=== PATIENT | female | born 2000 | race Caucasian/White ===

== ENCOUNTER 2021-01-10 22:46 | Observation (INO) | payer SELFPAY ==
[~2021-01-10] VITALS: Ht 157.5 cm; Wt 64.0 kg
[2021-01-10] MEDS ORDERED: KETOROLAC 30 MG/1 ML ONE (23:37)
[2021-01-10] MEDS ORDERED: ONDANSETRON 2MG/ML, 2ML ONE (23:37)
--- NOTE | 2021-01-10 23:40 | NUR ---
Pt syncoped in waiting room dad knocked on door and was carrying pt into the ER. Pt was taken to T4 and assessed. IV started blood drawn and sent, EKG done, IVF infusing, BG 134. Sinus tach no ectopy RR equal and unlabored. Dr Hung at bedside. MICHEAL
[2021-01-10 23:49] LABS: MEAN CORPUSCULAR HEMOGLOBIN 30.5 pg (27.0-34.8); MEAN CORPUSCULAR HGB CONC 34.6 g/dL (32.4-35.8); MEAN PLATELET VOLUME 8.8 fL (7.4-10.4); PLATELET COUNT 193 x10^3/uL (130-400); RED BLOOD COUNT 4.49 x10^6/uL (3.82-5.3); RED CELL DISTRIBUTION WIDTH 13.5 % (9.6-15.2)
--- NOTE | 2021-01-10 23:55 | NUR ---
PTY MOVED FROM ED TRAUMA 4 TO ROOM 18. REPORT RECEIVED FROM DANNA PAGE.
[2021-01-11] MEDS ORDERED: ONDANSETRON 2MG/ML, 2ML IVPush ONE
[2021-01-11] MEDS ORDERED: SODIUM CHLORIDE 0.9% 1,000ML IVBOLUS ONE
[2021-01-11] MEDS ORDERED: ACETAMINOPHEN 500 MG TABLET PO ONE
[2021-01-11] MEDS ORDERED: KETOROLAC 30 MG/1 ML IVPush ONE
[2021-01-11 00:03] LABS: ALANINE AMINOTRANSFERASE 457 U/L (12-78); ALBUMIN 3.4 g/dL (3.4-5.0); ANION GAP 8 mmol/L (5-15); CALCIUM 8.5 mg/dL (8.5-10.1); CHLORIDE 103 mmol/L (98-107)
[2021-01-11 00:07] LABS: ALKALINE PHOSPHATASE 267 U/L (45-117); BILIRUBIN,TOTAL 4.9 mg/dL (0.2-1.0); TOTAL PROTEIN 7.9 g/dL (6.4-8.2)
[2021-01-11] MEDS ORDERED: ACETAMINOPHEN 500 MG TABLET ONE (00:13)
--- NOTE | 2021-01-11 00:24 | NUR ---
PT TO IMAGING
[2021-01-11 00:25] LABS: BAND#(MANUAL) 0.75 x10^3/uL; BANDS%(MANUAL) 5 % (0-7); LYMPH#(MANUAL) 9.83 x10^3/uL (1-6.1); LYMPHS% (MANUAL) 66 % (22-44); MONOS#(MANUAL) 1.94 x10^3/uL (0.3-2.7); MONOS% (MANUAL) 13 % (2-9); SEG#(MANUAL) 2.38 x10^3/uL (1.8-8); SEGS% (MANUAL) 16 % (42-75)
[2021-01-11 00:26] LABS: <PLATELET ESTIMATE> ADEQUATE; <PLT MORPHOLOGY> NORMAL PLT MORPH; <RBC MORPHOLOGY> NORMAL
[2021-01-11 01:27] LABS: MICROSCOPIC INDICATED
[2021-01-11] MEDS ORDERED: CEFTRIAXONE 1,000 MG in DEXTROSE 5% 50 ML IVPB ONE (02:00)
[2021-01-11 02:28] LABS: BILIRUBIN, DIRECT 3.6 mg/dL (0.1-0.2); BILIRUBIN,INDIRECT 1.3 mg/dL (0.0-2.0); BILIRUBIN,TOTAL 4.9 mg/dL (0.2-1.0)
--- NOTE | 2021-01-11 03:25 | NUR ---
Pt to be admitted to medical, room 359. Report called to
--- NOTE | 2021-01-11 03:34 | NUR ---
Pt prepared for tranport to floor. All belongings with pt and medication given to dad to take home.
[2021-01-11 03:50] VITALS: BP 96/62
[2021-01-11] MEDS ORDERED: CEFTRIAXONE 1,000 MG in DEXTROSE 5% 50 ML IVPB SCH (06:00)
[2021-01-11] MEDS ORDERED: ONDANSETRON 2MG/ML, 2ML IVPush PRN (06:00)
[2021-01-11 07:09] VITALS: BP 98/58
[2021-01-11 13:23] VITALS: BP 102/68
[2021-01-11] MEDS: POTASSIUM CHLORIDE 20 MEQ in LACTATED RINGERS 1,000 ML IV SCH ×2 (13:39→21:46)
[2021-01-11 19:14] VITALS: BP 96/60
[2021-01-11] MEDS ORDERED: ACETAMINOPHEN 325 MG TABLET PO PRN (19:30)
[2021-01-11] MEDS ORDERED: IBUPROFEN 200 MG TABLET PO PRN (20:30)
[2021-01-12 00:34] VITALS: BP 91/62
[2021-01-12 04:22] VITALS: BP 110/74
[2021-01-12 06:14] LABS: MEAN CORPUSCULAR HEMOGLOBIN 30.7 pg (27.0-34.8); MEAN CORPUSCULAR HGB CONC 34.3 g/dL (32.4-35.8); MEAN PLATELET VOLUME 8.8 fL (7.4-10.4); PLATELET COUNT 161 x10^3/uL (130-400); RED BLOOD COUNT 3.99 x10^6/uL (3.82-5.3); RED CELL DISTRIBUTION WIDTH 14.1 % (9.6-15.2)
[2021-01-12 06:20] LABS: ALBUMIN 2.9 g/dL (3.4-5.0); ANION GAP 7 mmol/L (5-15); CALCIUM 8.2 mg/dL (8.5-10.1); CHLORIDE 108 mmol/L (98-107)
[2021-01-12 06:24] LABS: ALANINE AMINOTRANSFERASE 612 U/L (12-78); ALKALINE PHOSPHATASE 229 U/L (45-117); BILIRUBIN,TOTAL 4.3 mg/dL (0.2-1.0); CREATININE 0.62 mg/dL (0.55-1.02); TOTAL PROTEIN 6.6 g/dL (6.4-8.2)
[2021-01-12] MEDS: POTASSIUM CHLORIDE 20 MEQ in LACTATED RINGERS 1,000 ML IV SCH ×2 (06:25→14:35)
[2021-01-12 07:06] LABS: BANDS%(MANUAL) 2 % (0-7); EOS% (MANUAL) 1 % (1-7); LYMPH#(MANUAL) 1.84 x10^3/uL (1-6.1); LYMPHS% (MANUAL) 18 % (22-44); MONOS#(MANUAL) 1.12 x10^3/uL (0.3-2.7); MONOS% (MANUAL) 11 % (2-9); REACTIVE LYMPHS # (MANUAL) 3.06 x10^3/uL (0-0); REACTIVE LYMPHS % (MANUAL) 30 % (0-0); SEG#(MANUAL) 3.88 x10^3/uL (1.8-8); SEGS% (MANUAL) 38 % (42-75)
[2021-01-12 07:10] LABS: <PLATELET ESTIMATE> ADEQUATE; <PLT MORPHOLOGY> NORMAL PLT MORPH; <RBC MORPHOLOGY> NORMAL
[2021-01-12 07:15] VITALS: BP 111/74
[2021-01-12 15:59] VITALS: BP 102/69
[2021-01-12] MEDS ORDERED: CEPH-376 PO (16:53)
[2021-01-13 19:02] LABS: ANA SCREEN NEGATIVE (Negative)
== END 2021-01-12 19:19 | disposition home or self-care (01) ==
LOC: ED 01-11 01:30 → EDIP 01-11 02:32 → INTOOBSV 01-11 02:32 → 3N 01-11 03:46
PROVIDERS: ADMIT Student in an Organized Health Care Education/Training Program; ATTEND Internal Medicine
DX: B17.9 Acute viral hepatitis, unspecified (principal); R65.10 Systemic inflammatory response syndrome (SIRS) of non-infectious origin without acute organ dysfunction; K80.20 Calculus of gallbladder without cholecystitis without obstruction; N39.0 Urinary tract infection, site not specified; B27.00 Gammaherpesviral mononucleosis without complication; D72.829 Elevated white blood cell count, unspecified; E87.1 Hypo-osmolality and hyponatremia; R73.9 Hyperglycemia, unspecified; I63.9 Cerebral infarction, unspecified; R55 Syncope and collapse; M79.10 Myalgia, unspecified site; R53.83 Other fatigue; Z79.899 Other long term (current) drug therapy
CPT/HCPCS: 36415; 71045; 74176; 74181; 80053; 80299; 81001; 82247; 82248; 82962; 83516; 83605; 84703; 85025; 86038; 86308; 86645; 86706; 87040; 87086; 93005; 96361; 96365; 96366; 96375; 99285; G0378; J0696; J1885; J2405; J3480; J7030; J7120; 86705; 86709; 86803; 87340